=== PATIENT | male | born 1990 | race Caucasian/White ===

== ENCOUNTER 2016-11-23 14:46 | Emergency (ER) | payer BC ==
[~2016-11-23] VITALS: Ht 188 cm; Wt 166.8 kg
[~2016-11-23 14:46] MED LIST: NOHOMEMEDS
[2016-11-23] MEDS ORDERED: PHENTERMINE H37.5 MG PO (15:16)
[2016-11-23] MEDS ORDERED: ANTIDEPRESSANT PO (15:17)
[2016-11-23] MEDS ORDERED: NAPROXEN500 MG PO (17:24)
[2016-11-23 17:35] VITALS: BP 153/118
== END 2016-11-23 17:35 | disposition home or self-care (01) ==
LOC: EME 14:46
DX: S56.912A Strain of unspecified muscles, fascia and tendons at forearm level, left arm, initial encounter (principal); X50.0XXA Overexertion from strenuous movement or load, initial encounter; Y93.B3 Activity, free weights; F17.200 Nicotine dependence, unspecified, uncomplicated
CPT/HCPCS: 73080; 93971; 99281; 99284

== ENCOUNTER 2017-05-30 10:03 | Emergency (ER) | payer BC ==
[~2017-05-30] VITALS: Ht 188 cm; Wt 173.6 kg
[~2017-05-30 10:03] MED LIST changes: +ANTIDEPRESSANT PO; +NAPROXEN500 MG PO; +PHENTERMINE H37.5 MG PO
[2017-05-30 11:46] LABS: HEMATOCRIT 43.5 % (38.0-50.0); HEMOGLOBIN 14.2 G/DL (12.5-16.6); MCH 26.5 PG (29.0-34.0); MCHC 32.6 G/DL (30.0-36.0); MCV 81.2 FL (86-99); PLATELET COUNT 254 K/uL (156-360); RBC DIS.WIDTH-CV 13.5 % (11.8-14.6); RBC DIS.WIDTH-SD 39.4 % (39-53); RED BLOOD COUNT 5.36 M/uL (4.00-5.50); WHITE BLOOD COUNT 7.3 K/uL (4.1-10.2)
[2017-05-30 11:49] LABS: INTER. NORMALIZED RATIO 1.3
[2017-05-30 11:52] LABS: PTT 30.4 SEC (25-37)
[2017-05-30 11:55] LABS: ALBUMIN 4.1 g/dL (3.2-4.8); CHLORIDE 104 mEq/L (99-109); POTASSIUM 3.9 mEq/L (3.7-5.4); SODIUM 139 mEq/L (136-147)
[2017-05-30 11:58] LABS: GLUCOSE 95 mg/dL (70-99); TOTAL PROTEIN 7.7 g/dL (6.4-8.3)
[2017-05-30 12:00] LABS: TOTAL BILIRUBIN 1.3 mg/dL (0.0-1.0)
[2017-05-30 12:01] LABS: ALKALINE PHOSPHATASE 74 IU/L (3-129); CREATININE 1.3 mg/dL (0.6-1.3); GFR ESTIMATE (CALCULATED) > 59 mL/min/ (58.99-99999)
[2017-05-30 12:02] LABS: UREA NITROGEN (BUN) 13 mg/dL (9-23)
[2017-05-30 12:03] LABS: AST (GOT) 21 IU/L (2-34)
[2017-05-30 12:04] LABS: ALT (GPT) 28 IU/L (3-49)
[2017-05-30] MEDS ORDERED: AUGMENTIN875 MG PO (12:20)
[2017-05-30] MEDS ORDERED: ZOFRAN ODT4 MG PO (12:20)
[2017-05-30 13:33] VITALS: BP 138/78
[2017-05-31] MEDS ORDERED: DUONEB 2.5-0.5 M3 ML AEROSOL (13:07)
[2017-05-31] MEDS ORDERED: NEBULIZER MC (13:07)
[2017-05-31] MEDS ORDERED: PREDNISONE20 MG PO (13:09)
== END 2017-05-30 13:33 | disposition home or self-care (01) ==
LOC: EME 10:03
PROVIDERS: Nurse Practitioner Family
DX: A46 Erysipelas (principal); A08.4 Viral intestinal infection, unspecified; R06.2 Wheezing; M79.604 Pain in right leg; M79.605 Pain in left leg; R51 Headache; E66.01 Morbid (severe) obesity due to excess calories; Z68.42 Body mass index [BMI] 45.0-49.9, adult; Z72.0 Tobacco use
CPT/HCPCS: 80053; 83605; 83690; 85027; 85610; 85730; 99281; 99285; J0295; J1885; J2405; J7030; J7050

== ENCOUNTER 2017-05-31 10:41 | Inpatient (IN) | payer BC ==
[~2017-05-31] VITALS: Ht 167.6 cm; Wt 172.7 kg
[~2017-05-31 10:41] MED LIST changes: +AUGMENTIN875 MG PO; +ZOFRAN ODT4 MG PO
[2017-05-31] MEDS ORDERED: NEBULIZER MC (13:07)
[2017-05-31] MEDS ORDERED: DUONEB 2.5-0.5 M3 ML AEROSOL (13:07)
[2017-05-31] MEDS ORDERED: PREDNISONE20 MG PO (13:09)
[2017-05-31 15:14] LABS: HEMATOCRIT 41.4 % (38.0-50.0); HEMOGLOBIN 13.2 G/DL (12.5-16.6); MCHC 31.9 G/DL (30.0-36.0); MCV 81.5 FL (86-99); PLATELET COUNT 196 K/uL (156-360); RBC DIS.WIDTH-CV 13.5 % (11.8-14.6); RED BLOOD COUNT 5.08 M/uL (4.00-5.50); WHITE BLOOD COUNT 4.3 K/uL (4.1-10.2)
[2017-05-31 15:25] LABS: CHLORIDE 111 mEq/L (99-109); POTASSIUM 3.7 mEq/L (3.7-5.4); SODIUM 141 mEq/L (136-147)
[2017-05-31 15:27] LABS: GLUCOSE 130 mg/dL (70-99); TOTAL PROTEIN 7.4 g/dL (6.4-8.3)
[2017-05-31 15:29] LABS: TOTAL BILIRUBIN 1.3 mg/dL (0.0-1.0)
[2017-05-31 15:30] LABS: ALKALINE PHOSPHATASE 63 IU/L (3-129)
[2017-05-31 15:31] LABS: CREATININE 1.2 mg/dL (0.6-1.3); GFR ESTIMATE (CALCULATED) > 59 mL/min/ (58.99-99999)
[2017-05-31 15:32] LABS: UREA NITROGEN (BUN) 13 mg/dL (9-23)
[2017-05-31 15:34] LABS: ALT (GPT) 34 IU/L (3-49); AST (GOT) 47 IU/L (2-34)
[2017-05-31 16:17] VITALS: BP 124/61
[2017-05-31 19:45] VITALS: BP 141/68
[2017-06-01] VITALS: BP 128/67
[2017-06-01 04:00] VITALS: BP 132/66
[2017-06-01 07:14] LABS: HEMATOCRIT 42.9 % (38.0-50.0); HEMOGLOBIN 13.6 G/DL (12.5-16.6); MCH 25.9 PG (29.0-34.0); MCHC 31.7 G/DL (30.0-36.0); MCV 81.7 FL (86-99); RBC DIS.WIDTH-CV 13.7 % (11.8-14.6); RBC DIS.WIDTH-SD 40.6 % (39-53); RED BLOOD COUNT 5.25 M/uL (4.00-5.50); WHITE BLOOD COUNT 4.8 K/uL (4.1-10.2)
[2017-06-01 07:16] VITALS: BP 130/66
[2017-06-01 07:19] LABS: PLATELET COUNT 307 K/uL (156-360)
[2017-06-01 07:46] LABS: ALKALINE PHOSPHATASE 52 IU/L (3-129); ALT (GPT) 31 IU/L (3-49); AST (GOT) 47 IU/L (2-34); CHLORIDE 105 MEQ/L (99-109); CREATININE 1.1 MG/DL (0.6-1.3); GFR ESTIMATE (CALCULATED) > 59 mL/min/ (58.99-99999); GLUCOSE 136 mg/dL (70-99); SODIUM 139 MEQ/L (136-147); TOTAL BILIRUBIN 0.8 MG/DL (0.0-1.0); TOTAL PROTEIN 7.2 G/DL (6.4-8.3); UREA NITROGEN (BUN) 13 mg/dL (9-23)
[2017-06-01 07:49] LABS: POTASSIUM 4.6 MEQ/L (3.7-5.4)
[2017-06-01 11:27] VITALS: BP 118/76
[2017-06-01 16:02] VITALS: BP 123/59
[2017-06-01 19:00] VITALS: BP 149/72
[2017-06-02 07:26] VITALS: BP 130/66
[2017-06-02 08:32] LABS: HEMOGLOBIN A1c (GLYCOHEMOGLOB) 5.1 % (Below 5.7)
[2017-06-02 11:29] VITALS: BP 168/96
[2017-06-02 15:14] VITALS: BP 131/69
[2017-06-02 19:09] VITALS: BP 128/62
[2017-06-03 05:33] LABS: CHLORIDE 106 MEQ/L (99-109); CREATININE 0.9 MG/DL (0.6-1.3); GFR ESTIMATE (CALCULATED) > 59 mL/min/ (58.99-99999); GLUCOSE 144 mg/dL (70-99); POTASSIUM 5.1 MEQ/L (3.7-5.4); SODIUM 136 MEQ/L (136-147); UREA NITROGEN (BUN) 20 mg/dL (9-23)
[2017-06-03 08:15] VITALS: BP 144/79
[2017-06-03 11:18] VITALS: BP 140/71
[2017-06-03 13:59] LABS: BASE EXCESS 0.7 mEq/L (-3 to +3); BICARBONATE 24.5 mEq/L (22-26); CARBOXY HGB 1.7 % (0-5); METHEMOGLOBIN 1.4 % (0-1.5); PCO2 36 mm Hg (35-45); PO2 79 mm Hg (80-100); SITE RR; pH 7.44 (7.35-7.45)
[2017-06-03 14:00] LABS: COMMENTS - BLOOD GASES A+C+; DEVICE HFLNC; O2 FLOW 15 L/MIN; TOTAL RESP RATE 17 resp/min
[2017-06-03 15:26] VITALS: BP 138/75
[2017-06-03 19:51] VITALS: BP 134/64
[2017-06-04] VITALS (8 sets, daily range): BP systolic 116–197; BP diastolic 58–74
[2017-06-04 06:18] LABS: CHLORIDE 104 MEQ/L (99-109); CREATININE 0.9 MG/DL (0.6-1.3); GFR ESTIMATE (CALCULATED) > 59 mL/min/ (58.99-99999); GLUCOSE 168 mg/dL (70-99); POTASSIUM 4.4 MEQ/L (3.7-5.4); SODIUM 139 MEQ/L (136-147); UREA NITROGEN (BUN) 24 mg/dL (9-23)
[2017-06-05 03:54] VITALS: BP 123/61
[2017-06-05 08:34] VITALS: BP 119/71
[2017-06-05 11:41] VITALS: BP 149/66
[2017-06-05 15:10] VITALS: BP 142/74
[2017-06-05 19:36] VITALS: BP 124/56
[2017-06-05 23:06] VITALS: BP 106/53
[2017-06-06] VITALS (8 sets, daily range): BP systolic 111–164; BP diastolic 55–776
[2017-06-07 03:34] VITALS: BP 126/61
[2017-06-07 08:25] VITALS: BP 133/69
[2017-06-07 11:35] VITALS: BP 119/55
[2017-06-07 15:56] VITALS: BP 121/59
[2017-06-07 19:39] VITALS: BP 132/66
[2017-06-07 23:43] VITALS: BP 135/74
[2017-06-08 03:25] VITALS: BP 140/63
[2017-06-08 08:00] VITALS: BP 121/60
[2017-06-08 11:24] VITALS: BP 132/72
[2017-06-08 15:25] VITALS: BP 127/68
[2017-06-08] MEDS ORDERED: PREDNISONE10 MG PO (16:23)
[2017-06-08] MEDS ORDERED: PANTOPRAZOLE SO40 MG PO (16:25)
[2017-06-08] MEDS ORDERED: DOXYCYCLINE HY100 M3 PO (16:33)
[2017-06-08] MEDS ORDERED: DUONEB 2.5-0.5 M3 ML AEROSOL (16:33)
[2017-06-08] MEDS ORDERED: LEVOFLOXACIN750 MG PO (16:33)
[2017-06-08] MEDS ORDERED: PROAIR HFA8.5 GM IH (16:33)
[2017-06-08] MEDS ORDERED: ADVAIR HFA120 INHALA IH (16:33)
[2017-06-09] MEDS ORDERED: BREO ELLIPTA I1 EACH IH (11:20)
== END 2017-06-08 17:30 | disposition home or self-care (01) | DRG 202 ==
LOC: EME 10:41 → 5WEST 14:34 → EDOF 14:34 → ENRESERV 14:38 → 5WEST 15:51 → ENRESERV 06-02 12:15 → CANRESERV 06-02 12:21 → ENRESERV 06-02 12:21 → 5WEST 06-08 17:30
PROVIDERS: Emergency Medicine Emergency Medical Services; Family Medicine; Internal Medicine; Internal Medicine Infectious Disease
DX: J45.21 Mild intermittent asthma with (acute) exacerbation (principal); J18.9 Pneumonia, unspecified organism; J96.01 Acute respiratory failure with hypoxia; R21 Rash and other nonspecific skin eruption; B34.9 Viral infection, unspecified; K21.9 Gastro-esophageal reflux disease without esophagitis; F17.200 Nicotine dependence, unspecified, uncomplicated; E66.01 Morbid (severe) obesity due to excess calories; Z68.44 Body mass index [BMI] 60.0-69.9, adult; Z82.49 Family history of ischemic heart disease and other diseases of the circulatory system
CPT/HCPCS: 36600; 71045; 71046; 71275; 80048; 80053; 82803; 83036; 83605; 83690; 85027; 85610; 85730; 87040; 87070; 87205; 87449; 87502; 93306; 94010; 94640; 94640 76; 94667; 94668; 94799; 99202; 99281; 99285; G0378; J0295; J0456; J0780; J1650; J1885; J1956; J2405; J2930; J7030; J7040; J7050; J7512